=== PATIENT | female | born 1965 | race Caucasian/White ===

== ENCOUNTER 2024-09-15 09:29 | Outpatient (REF) | payer OTHER, SELFPAY ==
--- NOTE | ~2024-09-15 | US_ITS ---
EXAMINATION: US TRIPLEX LOWER EXTREMITY, LEFT CLINICAL INFORMATION: Pain in left thigh. COMPARISON: None available. TECHNIQUE: Color-flow triplex imaging with spectral analysis and compression Doppler were performed on the left lower extremity. FINDINGS: Respiratory variation, normal compression and augmented flow are noted throughout the left lower extremity. The visualized common femoral vein, superficial femoral vein, profunda femoral vein, popliteal vein and midcalf peroneal and posterior tibial venous segments show no evidence of deep venous thrombosis. There is no Mohamud's cyst. US/US venous duplex LE LT IMPRESSION: No evidence of deep venous thrombosis involving the left lower extremity. Electronically signed by: Lm Le MD 09/15/2024 10:03 AM POO[facility]
== END 2024-09-15 09:30 | disposition home or self-care (01) ==
LOC: HO.HMGCX 09:29
PROVIDERS: PCP Nurse Practitioner Family; Visit Provider Physician Assistant
DX: M79.652 Pain in left thigh (principal); R60.0 Localized edema; M25.562 Pain in left knee
CPT/HCPCS: 93971

== ENCOUNTER → 2024-09-15 09:32 | Outpatient (BNV) | payer OTHER, SELFPAY | PROVIDERS: PCP Nurse Practitioner Family; Visit Provider Radiology Diagnostic Radiology | DX: M79.652 Pain in left thigh (principal) | CPT/HCPCS: 93971 ==